=== PATIENT | female | born 1950 | race Caucasian/White ===

== ENCOUNTER 2019-12-24 09:32 | Outpatient (RCR) | payer SELFPAY | END 2020-01-13 23:59 | disposition home or self-care (01) | LOC: INF 09:32 | PROVIDERS: Visit Provider Internal Medicine Hematology & Oncology | DX: R69 Illness, unspecified (principal) ==

== ENCOUNTER 2019-12-24 09:47 | Outpatient (CLI) | payer OTHER, SELFPAY ==
[2019-12-24 10:34] LABS: Abs Immature Grans 0.02 k/cumm (0.0-0.09); Absolute Basophil Count 0.01 k/cumm (0.0-0.2); Absolute Eosinophil Count 0.28 k/cumm (0.0-0.7); Absolute Lymphocyte Count 0.81 k/cumm (1.2-3.4); Absolute Monocyte Count 0.91 k/cumm (0.11-0.7); Absolute Neutrophil Count 2.96 k/cumm (1.2-6.7); Basophils % 0.2; Eosinophils % 5.6; HCT 34.7 % (36.0-46.0); HGB 10.9 g/dL (12.0-15.5); Immature Grans % 0.4 %; Lymphocytes % 16.2; Mean Corp. HGB Concentration 31.4 g/dL (32.0-36.0); Mean Corpuscular Hemoglobin 26.5 pg (27.0-33.0); Mean Corpuscular Volume 84.4 fL (80-95); Mean Platelet Volume 8.4 fL (8.0-11.0); Monocytes % 18.2; Neutrophils % 59.4; Platelet Count 296 x1000/uL (130-400); RBC 4.11 m/cumm (4.00-5.20); RBC Distribution Width 15.6 % (11.7-14.6); Reticulocyte 0.9 % (0.5-2.4); White Blood Cell Count 4.99 k/cumm (4.4-10.8)
[2019-12-24 11:02] LABS: ALT 23 U/L (14-59); AST 28 U/L (15-37); Albumin 3.5 g/dL (3.4-5.0); Alkaline Phosphatase 123 U/L (46-116); Anion Gap 10.2 mmol/L (3-11); BUN 22 mg/dL (7-18); Bilirubin, Total 0.7 mg/dL (0.2-1.0); CO2 26.8 mmol/L (21.0-32.0); Calcium 8.9 mg/dL (8.5-10.1); Chloride 101 mmol/L (98-107); Ferritin 102 ng/mL (8-252); Glucose 146 mg/dL (74-106); Potassium 4.2 mmol/L (3.5-5.1); Sodium 138 mmol/L (136-145); TSH 1.92 uIU/mL (0.36-3.74); Total Protein 9.9 g/dL (6.4-8.2)
[2019-12-24 11:13] LABS: LDH 325 U/L (81-234)
[2019-12-24 11:27] LABS: Iron 45 ug/dL (50-170); Total Iron Binding Capacity 266 ug/dL (250-450); Transferrin Sat 17 % (15-50)
[2019-12-25 10:32] LABS: HBs Antibody, Quant >1000.0 mIU/mL (See Note); Hepatitis B Surface Ab Positive (See Note)
[2019-12-25 11:07] LABS: Hepatitis B Surface Ag Negative (Negative)
[2019-12-25 11:24] LABS: IgA <13 mg/dL (85-499); IgG 483 mg/dL (610-1,616); IgM 4058 mg/dL (35-242); Kappa Free Light Chain 11.07 mg/dL (0.33-1.94); Lambda Free Light Chain <0.44 mg/dL (0.57-2.63)
[2019-12-25 11:53] LABS: HIV-1/2 Ag & Ab Screen Negative (Negative); Hep B Core Antibody Negative (Negative); Hepatitis C Ab w Rflx HCV PCR Negative (Negative)
[2019-12-25 13:48] LABS: Albumin 43.2 % (55.8-66.1); Comment (See Note); Monoclonal Spike 31.6 % (None Seen); Total Protein 9.6 g/dL (6.3-8.2)
[2019-12-25 15:52] LABS: Erythropoietin 9.6 mIU/mL (2.6 - 18.5)
[2019-12-25 22:54] LABS: Beta-2-Microglobulin 3.71 mcg/mL
[2019-12-26 08:42] LABS: Immunotyping, Serum (See Note)
[2019-12-27 00:09] LABS: Viscosity, S 1.9 cpoise (<=1.5)
== END 2019-12-24 10:07 ==
PROVIDERS: Visit Provider Internal Medicine Hematology & Oncology
DX: C88.0 Waldenstrom macroglobulinemia (principal); D64.9 Anemia, unspecified; Z11.59 Encounter for screening for other viral diseases; Z11.4 Encounter for screening for human immunodeficiency virus [HIV]
CPT/HCPCS: 36415; 80053; 82668; 82784; 86704; 86706; 86803; 87340; 87389; 82232; 82728; 83540; 83550; 83615; 83883; 84165; 84443; 85025; 85045; 85810; 86320; 86880

== ENCOUNTER 2021-05-26 04:36 | Outpatient (CLI) | payer OTHER, SELFPAY ==
[2021-05-28 12:42] LABS: SARS-CoV-2 Spike Ab, Interp Negative (Negative); SARS-CoV-2 Spike Ab, Quant <0.40 U/mL (<0.80)
== END 2021-05-26 04:37 | disposition home or self-care (01) ==
LOC: LBO 04:36
PROVIDERS: Visit Provider Internal Medicine Hematology & Oncology
DX: C88.0 Waldenstrom macroglobulinemia (principal)
CPT/HCPCS: 36415; 86769

== ENCOUNTER 2021-11-21 03:14 | Outpatient (CLI) | payer OTHER, SELFPAY ==
[2021-11-22 01:24] LABS: COVID-19 RT-PCR UVMMC Result Negative (Negative)
== END 2021-11-21 03:15 | disposition home or self-care (01) ==
LOC: LBO 03:14
PROVIDERS: Visit Provider Internal Medicine Hematology & Oncology
DX: Z20.822 Contact with and (suspected) exposure to COVID-19 (principal); Z01.818 Encounter for other preprocedural examination
CPT/HCPCS: U0003; U0005

== ENCOUNTER 2021-11-23 00:46 | Outpatient (RCR) | payer OTHER, SELFPAY | END 2021-12-12 23:59 | disposition home or self-care (01) | LOC: INF 00:46 | PROVIDERS: Visit Provider Family Medicine | DX: Z29.8 Encounter for other specified prophylactic measures (principal); D84.9 Immunodeficiency, unspecified | CPT/HCPCS: 96372; Q0221 ==

== ENCOUNTER 2022-06-29 03:18 | Outpatient (RCR) | payer MEDICARE, SELFPAY | END 2022-07-14 23:59 | disposition home or self-care (01) | LOC: INF 03:18 | PROVIDERS: Visit Provider Internal Medicine | DX: C88.0 Waldenstrom macroglobulinemia (principal); Z29.8 Encounter for other specified prophylactic measures | CPT/HCPCS: 96372; Q0221 ==